=== PATIENT | female | born 1995 | race Caucasian/White ===

== ENCOUNTER 2019-06-04 11:19 | Emergency (ER) | payer MEDICARE, MEDICAID ==
[~2019-06-04] VITALS: Ht 167.6 cm; Wt 72.6 kg
--- NOTE | 2019-06-04 11:19 | NUR ---
PT BIBA BLS TO ER BED 11
[2019-06-04 11:26] VITALS: BP 111/50
--- NOTE | 2019-06-04 11:30 | NUR ---
Pt viv originally called for emotional distress for fighting with boyfriend. 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 Per [facility] pt was cyanotic and nonrebreather was applied. Pt currently 95% on RA. Pt currently postictal. GCS 14, confused. Per pt she hasn't taken Keppra since Wednesday. Pt c/o 10/05 pain to head. Seizure precautions implemented, hob elevated, bed in lowest position, padded side rails up x2. ERMD at bedside.
[2019-06-04] MEDS ORDERED: levETIRAcetam 100 MG/ML VIAL IV ONE (11:57)
[2019-06-04] MEDS ORDERED: levETIRAcetam 500 MG in NACL 0.9% 100 ML IV ONE (12:05)
[2019-06-04 12:08] LABS: BASOPHILS % (AUTO) 0.4 % (0.0-2.0); EOSINOPHILS # (AUTO) 0.1 K/uL (0-0.4); EOSINOPHILS % (AUTO) 0.8 % (0.0-4.0); HEMATOCRIT 40.4 % (36-48); HEMOGLOBIN 13.4 g/dL (12.0-16.0); LYMPHOCYTES # (AUTO) 2.5 K/uL (2.5-16.5); LYMPHOCYTES % (AUTO) 30.6 % (20.5-51.1); MEAN CORPUSCULAR HEMOGLOBIN 32 pg (27-31); MEAN CORPUSCULAR HGB CONC 33 g/dL (33-37); MEAN CORPUSCULAR VOLUME 96.2 fL (80-94); MONOCYTES # (AUTO) 0.6 K/uL (0.8-1.0); NEUTROPHILS % (AUTO) 61.2 % (42.2-75.2); PLATELET COUNT (AUTO) 343 K/uL (140-450); RED CELL DISTRIBUTION WIDTH 13.1 % (11.6-13.7); WHITE BLOOD COUNT (AUTO) 8.1 K/uL (4.8-10.8)
[2019-06-04 12:21] LABS: ALBUMIN 4.1 g/dL (3.4-5.0); ANION GAP 21.1 (8-16); CARBON DIOXIDE 21.6 mmol/L (21-32); CREATININE 1.1 mg/dL (0.6-1.3); POTASSIUM 3.7 mmol/L (3.5-5.1); TOTAL BILIRUBIN 0.5 mg/dL (0.0-1.0)
--- NOTE | 2019-06-04 12:40 | NUR ---
Pt concerned about rash between her thighs. Area is red and tender to touch. Dr. Christianson made aware.
--- NOTE | 2019-06-04 12:49 | NUR ---
Patient discharged with v/s stable. Written and verbal after care instructions given and explained. Patient alert, oriented and verbalized understanding of instructions. Ambulatory with steady gait. All questions addressed prior to discharge. ID band removed. Patient advised to follow up with PMD. Rx of Keppra 500mg, Keflex 500mg, and Vimpat 200mg was given. Patient educated on indication of medication including possible reaction and side effects. Opportunity to ask questions provided and answered.
[2019-06-04 12:51] VITALS: BP 110/59
[2019-06-04] MEDS ORDERED: levETIRAcetam 500 MG in NACL 0.9% 100 ML IV SCH (21:00)
== END 2019-06-04 12:49 | disposition home or self-care (01) ==
LOC: MED 11:19
DX: R56.9 Unspecified convulsions (principal); L03.116 Cellulitis of left lower limb; L03.115 Cellulitis of right lower limb; F32.9 Major depressive disorder, single episode, unspecified; Z91.14 Patient's other noncompliance with medication regimen
CPT/HCPCS: 36415; 80053; 85025; 96365; 99283; J1953

== ENCOUNTER 2019-06-04 15:28 | Emergency (ER) | payer MEDICARE, MEDICAID ==
[~2019-06-04] VITALS: Ht 167.6 cm; Wt 81.6 kg
--- NOTE | 2019-06-04 15:28 | NUR ---
PT BIBA ALS TO ER BED 10
--- NOTE | 2019-06-04 15:30 | NUR ---
Pt BIBA for 3 min witnessed tonic clonic seizure. 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 BS 120. + Urine incontinence. Pt currently postictal. GCS 14, confused. Respirations even and unlabored. O2 saturation 96% on RA. Pt seen at [facility] and treated for seizure, given Keppra 500mg IV. Vital Signs Stable. Seizure precautions implented. HOB elevated, bed in lowest in position, padded side rails up x2. ERMD made aware of pt status Allergies: NKA Med hx: seizures
[2019-06-04 15:31] VITALS: BP 108/65
--- NOTE | 2019-06-04 15:50 | NUR ---
Pt cleansed and placed in gown. Pt GCS 15. Pt updated on plan of care. To be transfered to [facility] ED.
--- NOTE | 2019-06-04 16:39 | NUR ---
Gave report to Nicholas RN at [facility] ER
--- NOTE | 2019-06-04 16:55 | NUR ---
[facility] transport team arrived to transfer pt to [facility] EDPatient to be transferred to [facility]. Is being transferred due to higher level of care. Receiving facility has accepting physician and available space. ER physician has signed transfer form. Patient or responsible constitution party has agreed to transfer and signed form. Patient belongings inventoried and will be sent with patient. Copy of nursing notes, lab reports, Physicians Orders to be sent with patient. Report called to DINO Peterson at receiving facility. [facility] ambulance service here to transfer patient.
[2019-06-04 16:58] VITALS: BP 108/65
== END 2019-06-04 16:55 | disposition short-term general hospital (02) ==
LOC: MED 15:28
DX: G40.909 Epilepsy, unspecified, not intractable, without status epilepticus (principal)
CPT/HCPCS: 99285